=== PATIENT | male | born 2000 | race African-American/Black ===

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

== ENCOUNTER 2020-05-26 16:22 | Emergency (ER) | payer OTHER ==
[2020-05-26 16:33] VITALS: BP 134/83; PULSE 55; RESP 18; TEMP 98
--- NOTE | 2020-05-26 17:15 | ED ---
General Adult HPI - General Chief complaint: Recheck/Abnormal Lab/Rx Stated complaint: unable to sleep, nausea Time Seen by Provider: 05/26/20 16:36 Source: patient Mode of arrival: ambulatory Limitations: no limitations - History of Present Illness Initial comments: Dictation was produced using u.sit dictation software. please excuse any grammatical, word or spelling errors. This patient was cared for during a federal and state declared state of emergency secondary to Covid 19 Chief Complaint: 19-year-old -[place] male presents with chief complaint of insomnia History of Present Illness: Is a 19-year-old male who presents emergency department for chief complaint of insomnia. Patient states he is here today because he is having difficulty sleeping. States that he is for the last 6 days has not had any good sleep. Did see his primary care physician told to take antihistamines. States that at work however not worked very well according to him. Patient also has some mild chest pain. He states he knows is more when he goes to bed. He denies any history of anxiety but does feel anxious about his symptoms. He does feel short of breath when he lies flat. Denies any edema is lower extremities. States that he has a mild pressure-like sensation to his substernal area. No associated diaphoresis or radiation of symptoms to the jaw or upper extremities. No associated nausea. He also tried melatonin with no effect. The ROS documented in this emergency department record has been reviewed and confirmed by me. Those systems with pertinent positive or negative responses have been documented in the HPI. All other systems are other negative and/or noncontributory. PHYSICAL EXAM: General Impression: Alert and oriented x3, not in acute distress HEENT: Normocephalic atraumatic, extra-ocular movements intact, pupils equal and reactive to light bilaterally, mucous membranes moist. Cardiovascular: Heart regular rate and rhythm Chest: Able to complete full sentences, no retractions, no tachypnea Abdomen: abdomen soft, non-tender, non-distended, no organomegaly Musculoskeletal: Pulses present and equal in all extremities, no peripheral edema Motor: no focal deficits noted Neurological: CN II-XII grossly intact, no focal motor or sensory deficits noted Skin: Intact with no visualized rashes Psych: Normal affect and mood ED course: 19-year-old male presents with chest pain and insomnia. Vital Signs upon arrival are within acceptable limits. Physical examination is benign Physical examination is benign. EKGs benign no findings to suggest pericarditis or any other acute process. Laboratory evaluation obtained. CBC, metabolic panel is unremarkable. Brain natruretic peptide troponins negative. Chest x- ray is nonacute. Patient observed in the emergency department for approximately 3 hours. He is reevaluated at 7:00 PM in stable medical condition. Patient given some benzodiazepines to aid with sleeping. He is told to follow-up with his primary care physician for outpatient management of insomnia. EKG interpretation: Ventricular rate 56, sinus bradycardia,. 134, QRS 108, QTc 416. No ID prolongation, no QTC prolongation, no ST or T-wave changes noted. . Overall, this EKG is unremarkable - Related Data Home Medications Medication Instructions Recorded Confirmed Albuterol Inhaler (Mhu) [Ventolin 1 - 2 puff INHALATION RT-Q6H PRN 03/17/16 03/17/16 Hfa Inhaler] Previous Rx's Medication Instructions Recorded Ondansetron Odt [Zofran Odt] 4 mg PO Q8HR PRN #12 tab 03/25/16 ALPRAZolam [Xanax] 0.25 mg PO HS PRN 3 Days #3 tab 05/26/20 Allergies Allergy/AdvReac Type Severity Reaction Status Date / Time No Known Allergies Allergy Verified 03/25/16 22:45 Review of Systems ROS Statement: Those systems with pertinent positive or pertinent negative responses have been documented in the HPI. ROS Other: All systems not noted in ROS Statement are negative. Past Medical History Past Medical History: Asthma History of Any Multi-Drug Resistant Organisms: None Reported Past Surgical History: Ear Surgery Past Psychological History: Anxiety Smoking Status: Never smoker Past Alcohol Use History: None Reported Past Drug Use History: None Reported General Exam Limitations: no limitations Course Vital Signs 05/26/20 16:31 Temperature 98.0 F Pulse Rate 55 L Respiratory 18 Rate Blood Pressure 134/83 O2 Sat by Pulse 100 Oximetry Medical Decision Making - Lab Data Result diagrams: 05/26/20 17:25 05/26/20 17:25 Lab Results 05/26/20 05/26/20 05/26/20 Range/Units 17:25 17:25 17:25 WBC 7.6 (4.0-11.0) k/uL RBC 5.15 (4.30-5.90) m/uL Hgb 15.6 (13.0-17.5) gm/dL Hct 46.3 (39.0-53.0) % MCV 89.8 (80.0-100.0) fL MCH 30.2 (25.0-35.0) pg MCHC 33.7 (31.0-37.0) g/dL RDW 12.8 (11.5-15.5) % Plt Count 295 (150-450) k/uL MPV 7.1 Neutrophils % 73 % Lymphocytes % 20 % Monocytes % 5 % Eosinophils % 1 % Basophils % 1 % Neutrophils # 5.5 (1.3-7.7) k/uL Lymphocytes # 1.5 (1.0-4.8) k/uL Monocytes # 0.4 (0-1.0) k/uL Eosinophils # 0.0 (0-0.7) k/uL Basophils # 0.0 (0-0.2) k/uL Sodium 136 L (137-145) mmol/L Potassium 4.2 (3.5-5.1) mmol/L Chloride 102 (98-107) mmol/L Carbon Dioxide 25 (22-30) mmol/L Anion Gap 9 mmol/L BUN 12 (9-20) mg/dL Creatinine 0.95 (0.66-1.25) mg/dL Est GFR (CKD-EPI)AfAm >90 (>60 ml/min/1.73 sqM) Est GFR (CKD-EPI)NonAf >90 (>60 ml/min/1.73 sqM) Glucose 99 (74-99) mg/dL Calcium 10.2 (8.4-10.2) mg/dL Troponin I <0.012 (0.000-0.034) ng/mL NT-Pro-B Natriuret Pep pg/mL Lipase 73 (23-300) U/L 05/26/20 Range/Units 17:25 WBC (4.0-11.0) k/uL RBC (4.30-5.90) m/uL Hgb (13.0-17.5) gm/dL Hct (39.0-53.0) % MCV (80.0-100.0) fL MCH (25.0-35.0) pg MCHC (31.0-37.0) g/dL RDW (11.5-15.5) % Plt Count (150-450) k/uL MPV Neutrophils % % Lymphocytes % % Monocytes % % Eosinophils % % Basophils % % Neutrophils # (1.3-7.7) k/uL Lymphocytes # (1.0-4.8) k/uL Monocytes # (0-1.0) k/uL Eosinophils # (0-0.7) k/uL Basophils # (0-0.2) k/uL Sodium (137-145) mmol/L Potassium (3.5-5.1) mmol/L Chloride (98-107) mmol/L Carbon Dioxide (22-30) mmol/L Anion Gap mmol/L BUN (9-20) mg/dL Creatinine (0.66-1.25) mg/dL Est GFR (CKD-EPI)AfAm (>60 ml/min/1.73 sqM) Est GFR (CKD-EPI)NonAf (>60 ml/min/1.73 sqM) Glucose (74-99) mg/dL Calcium (8.4-10.2) mg/dL Troponin I (0.000-0.034) ng/mL NT-Pro-B Natriuret Pep 18 pg/mL Lipase (23-300) U/L Disposition Clinical Impression: Insomnia, Chest pain Disposition: HOME SELF-CARE Condition: Good Instructions (If sedation given, give patient instructions): Insomnia (ED) Prescriptions: ALPRAZolam [Xanax] 0.25 mg PO HS PRN 3 Days #3 tab PRN Reason: Insomnia Is patient prescribed a controlled substance at d/c from ED?: Yes If prescribed controlled substance>3 days was MAPS reviewed?: Prescribed <3 Days Referrals: Kaela Becerril MD [Primary Care Provider] - 1-2 days Time of Disposition: 19:11
[2020-05-26 17:40] LABS: Basophils % (A) 1 %; Eosinophils % (A) 1 %; HCT 46.3 % (39.0-53.0); HGB 15.6 gm/dL (13.0-17.5); Lymphocytes # (A) 1.5 k/uL (1.0-4.8); Lymphocytes % (A) 20 %; MCH 30.2 pg (25.0-35.0); MCHC 33.7 g/dL (31.0-37.0); MCV 89.8 fL (80.0-100.0); Mean Platelet Volume 7.1; Monocytes # (A) 0.4 k/uL (0-1.0); Monocytes % (A) 5 %; Neutrophils # (A) 5.5 k/uL (1.3-7.7); Neutrophils % (A) 73 %; Platelet Count 295 k/uL (150-450); RBC 5.15 m/uL (4.30-5.90); RDW 12.8 % (11.5-15.5); WBC 7.6 k/uL (4.0-11.0)
[2020-05-26 17:50] LABS: African American GFR (CKD) >90 (>60 ml/min/1.73 sqM); Anion Gap 9 mmol/L; Blood Urea Nitrogen 12 mg/dL (9-20); Calcium 10.2 mg/dL (8.4-10.2); Carbon Dioxide 25 mmol/L (22-30); Chloride 102 mmol/L (98-107); Glucose 99 mg/dL (74-99); Lipase 73 U/L (23-300); Non-African American GFR(CKD) >90 (>60 ml/min/1.73 sqM); Potassium 4.2 mmol/L (3.5-5.1); Sodium 136 mmol/L (137-145)
--- NOTE | 2020-05-26 18:16 | XR ---
EXAMINATION: XR chest 1V portable DATE AND TIME: 05/26/2020 5:48 PM CLINICAL INDICATION: PHH; pain, nausea TECHNIQUE: Single frontal view COMPARISON: 04/02/1714 FINDINGS: The lungs are hyperinflated. The lungs are clear and well-expanded bilaterally. The pleural spaces are negative. The cardiac silhouette is not enlarged. The remainder of the mediastinal silhouette is unremarkable. The skeletal structures and soft tissues are negative for acute findings. IMPRESSION: Hyperinflated lungs noted; no other findings.
== END 2020-05-26 19:16 | disposition home or self-care (01) ==
LOC: EC 16:22
DX: G47.00 Insomnia, unspecified (principal); R07.9 Chest pain, unspecified; F41.9 Anxiety disorder, unspecified; J45.909 Unspecified asthma, uncomplicated; Z79.899 Other long term (current) drug therapy
CPT/HCPCS: 36415; 71045; 80048; 83690; 83880; 84484; 85025; 93005; 99285

== ENCOUNTER → 2020-06-23 | Outpatient (CLI) | payer OTHER ==
--- NOTE | 2020-06-23 13:38 | CONS ---
CONSULTATION DATE OF SERVICE: 06/23/2020 19-year-old gentleman have been evaluated in [facility] for difficulties to fall asleep and multiple awakenings from sleep, according to his mother. HISTORY OF PRESENT ILLNESS/SLEEP WAKE EVALUATION: Most of the problem started about one month ago. 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 He is afraid that he will not sleep enough. SLEEP SCHEDULE: He goes to bed usually around 11:00 pm but falling asleep only around 3 a.m. and he gets up in the morning around 8 a.m. On weekends, he goes to bed about the same, but gets up late about 8, 9 or 10 am. Previously before he started to work, he went to bed later around midnight and gets up around 9 or 10 am before. DURING SLEEP: He does have TV set in bedroom. He sleeps on the side and stomach position. No snoring according to his mother, but patient still wakes up from sleep about 2-3 times. Sometimes possibly has leg movements at night. DURING THE DAY/SLEEP WAKE EVALUATION: During the day, has episodes of anxiety, worry about his sleep. Nelson Sleepiness Scale is 6. He does not take any naps. PAST MEDICAL HISTORY: Basically negative. PAST SURGICAL HISTORY: Negative. MEDICATIONS: None. SOCIAL HISTORY: Negative for smoking or using alcohol. FAMILY HISTORY: Positive for asthma and headaches. REVIEW OF SYSTEMS: Difficulties to initiate sleep, multiple awakenings from sleep. PHYSICAL EXAMINATION: GENERAL: gentleman without distress. BP 133/89, HR 62, RR 12, height 5 feet 7 inches, weight 143.0 pounds, body mass index 22, temperature 97.1. Oxygen saturation at room air 99%. HEENT: PERRLA, EOMI. Oropharynx extremely low position of soft palate. Mallampati 3-4. NECK: 14.5 inches in circumference. Supple, no JVD. Thyroid is not palpable. LUNGS: Clear to percussion and to auscultation. Good air exchange. No wheezing or rhonchi. HEART: S1, S2 regular. No murmurs, gallops, or rubs. ABDOMEN: Soft and nontender. Bowel sounds are present. No organomegaly appreciated. EXTREMITIES: No clubbing or cyanosis. MACHINE STUFFER: Awake, alert, and oriented X3. Cranial nerves 2 to 7 intact. There is no fasciculation or atrophy. noted. No focal deficits observed. IMPRESSION: 1. Psychophysiological insomnia, possibly secondary to anxiety. 2. Possible sleep delay syndrome. 3. Multiple awakenings from sleep. Low position of soft palate. Rule out obstructive sleep apnea-hypopnea syndrome. 4. Rule out periodic limb movements as the reason for awakenings from sleep. PLAN: 1. I discussed with the patient and the family psychological techniques for treatment of insomnia, including stimulus control, paradoxical intention worry of time, no watching clock. 2. Bright light in the morning to help the patient to move his sleep cycle earlier. 3. Ambien 5 mg at bedtime. 4. No driving if feeling sleepiness. 5. Polysomnography for evaluation of patient breathing during sleep and to check for periodic limb movements. 6. Following plan after reviewing the sleep test. Thank you very much for referring this patient for consultation. Sincerely, Stephon Dove MD, PhD, FAASM Diplomat of [place] [employer] [place] [employer] Supervisor of [facility] [place] MMODL / REYNAN: [id number] /
== END ==
LOC: SLEEP 11:48
PROVIDERS: ATTEND Internal Medicine
DX: F51.04 Psychophysiologic insomnia (principal); G47.8 Other sleep disorders
CPT/HCPCS: 99211